=== PATIENT | female | born 1970 | race Caucasian/White ===

== ENCOUNTER 2018-11-10 09:00 | Outpatient (RCR) | payer OTHER, SELFPAY ==
--- NOTE | 2018-10-22 17:14 | PT.OPPOC ---
Current Diagnoses Malignant neoplasm of unspecified site of unspecified female breast (10/19/18) Provider Visit Care Team Role Provider Type Lorena Myers MD Family Provider Physician Primary Care Provider Specialty: Family Practice Address: [address] [place] [address], [id number] Email: Suellen Meza MD Attending Provider Non-Staff Specialty: Medical Address: [address] [place] [address], [place], [address] Email: Plan Of Care PT-OP-T Assessment and Plan Start: 10/19/18 09:02 Freq: Status: Active Protocol: Document 10/19/18 09:02 KATHY (Rec: 10/19/18 17:22 KATHY [id number]) Physical Therapy Assessment Rehab Potential Rehabilitation Potential Excellent Evaluation Complexity Number of Personal Factors/Comorbidities 1-2 Number of Body Systems Impaired 3 Clinical Presentation at Evaluation Evolving Impairments Impairments Edema Integument ROM Goals 4 Impairment edema bilateral breasts Gear Cutting Machine Operator Goal (LTG) Patient to demonstrate no appreciable edema bilateral breasts LTG Duration 2 months 3 Impairment tissue fibrosis bilateral breasts Short Term Goal (STG) decrease soft tissue fibrosis bilateral breasts STG Duration 1 month Gear Cutting Machine Operator Goal (LTG) Eliminate soft tissue fibrosis bilateral breasts LTG Duration 2 months 2 Impairment scar mobility Detention Goal (LTG) Improve scar mobility in abdomen to WNL LTG Duration 2 months 1 Impairment ROM Short Term Goal (STG) Instruct patient in HEP for gentle UE ROM STG Duration 3 wks Gear Cutting Machine Operator Goal (LTG) Patient to demonstrate bilateral UE ROM WNL including ability to reach overhead and behind her back with ease for purposes of ADL's and functional activities LTG Duration 2 months Assessment Summary Assessment Patient presents with decreased shoulder ROM, decreased scar mobility, soft tissue fibrosis and edema bilateral breasts s/p bilateral mastectomies with reconstruction using abdominal -based ANTONY free flaps. She would benefit from PT to improve her shoulder ROM and function, improve her scar mobility, and eliminate her soft tissue fibrosis and edema bilateral breasts. Physical Therapy Plan Frequency and Duration Frequency of Treatment 2x/Week Duration of Treatment 3 months Plan of Care Start Date 10/19/18 Plan of Care End Date 01/17/19 Therapeutic Interventions Therapeutic Interventions Manual Therapy Patient/Caregiver Education Sensory Integration Soft Tissue Mobilization Therapeutic Activities Therapeutic Exercises Other Therapeutic Interventions edema management as indicated Next Visit Focus/Plan Next Note Type Treatment Note Next Visit Plan Review HEP, gentle progression of shoulder ROM. Scar mobilization. Plan of Care Dates Plan of Care Start Date 10/19/18 Plan of Care End Date 01/17/19 Please Sign and Return: I have reviewed this Plan of Care and certify that the skilled therapy services above are required to meet the patient?s needs. Physician Signature Date Printed Name and Credentials Clinical Instructor Signature Printed Name and Credentials
--- NOTE | 2018-10-24 10:54 | PT.OTN ---
Current Diagnoses Malignant neoplasm of unspecified site of unspecified female breast (10/24/18) Physical Therapy Treatment Note PT-OP-A Visit Information Start: 10/19/18 09:02 Freq: Status: Active Protocol: Document 10/24/18 09:01 KATHY (Rec: 10/24/18 10:52 [facility] [id number]) Out-Patient Physical Therapy Visit Information Visit Information Visit Type Treatment Note Visit Start Time 09:05 Visit Stop Time 09:45 Total Visit Minutes 40 Visit Number 2 Number of HEAD SAWYER AUTOMATIC Visits 0 Evaluation Information Evaluation Date 10/19/18 Precautions Precautions Gentle shoulder ab or ext until 6 wks post-op, slow progression on abdominal strengthening. Can work on scar management as well as shoulder ROM. PT-OP-B Current Condition Start: 10/19/18 09:02 Freq: Status: Active Protocol: Document 10/19/18 09:02 KATHY (Rec: 10/19/18 09:12 [facility] [id number]) Current Condition History of Current Condition Onset Date 09/14/18 Current Complaints decreased shoulder ROM, tightness and pain in abdomen, breast swelling History of Current Condition post-op nikki mastectomy ( prophylactic) with bilateral breast reconstruction using abdominal-based ANTONY free flaps. Reports no lymph nodes removed. Still has 1 drain in on right. Is uncertain what she is allowed to do at this point but is afraid of getting frozen shoulders, and reports tightness in abdomen feeling like it is pulling her forward . Was instructed to wear no compression or bra. Prior Treatments and Tests Hysterectomty 1 yr ago. HTN, carpal tunnel surgery Future Testing and Treatments Planned Phase II breast surgery in November. 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 Baseline Function- Recreation/Hobbies No limitations Current Functional Impairments (Reported) Functional Limitations- ADL's limited use of UE's; unable to reach overhead or behind her back for purposes of ADL's and functional activities. Functional Limitations- Work/School going back to work next week Functional Limitations- Recreation/ not currently running Hobbies PT-OP-C Subjective Start: 10/19/18 09:02 Freq: Status: Active Protocol: Document 10/24/18 09:01 KATHY (Rec: 10/24/18 10:54 [facility] [id number]) OP-PT Subjective Patient Comments Patient Comments No increase in pain, has been doing HEP, scar massage. Patient Reported Progress Improving PT-OP-J Posture/Palpation/Skin Start: 10/19/18 09:02 Freq: Status: Active Protocol: Document 10/19/18 09:02 [facility] (Rec: 10/19/18 17:22 [facility] [id number]) Posture Evaluation Position Sitting T-Spine Posture Increased Kyphosis Shoulder Posture (L) Rounded (R) Rounded Arm Posture (L) Internally Rotated (R) Internally Rotated Comments Posture Comments forward head, rounded shoulders, flexed trunk Palpation Assessment Location abdominal surgical scar Palpation Findings Soft Tissue Tightness Palpation Details decreased scar mobility bilateral breasts Palpation Findings Edema Soft Tissue Tightness Palpation Details fibrosis bilateral breasts inferiorly both medial and lateral Skin Assessment Incisional Assessment Incision Appearance/Comments breast incisions and abdominal incision healing well with no signs or symptoms of infection. Other Assessments Skin Assessment Comments moderate decrease in mobility abdominal scar. PT-OP-K Range of Motion Start: 10/19/18 09:02 Freq: Status: Active Protocol: Document 10/19/18 09:02 [facility] (Rec: 10/19/18 17:22 [facility] [id number]) Cervical Spine Range of Motion Cervical Spine Active Comments WNl Shoulder Goniometric Range of Motion Shoulder Measured in Degrees Left Flexion 105 Extension 15 Abduction 20 External Rotation at 45 degrees 70 Abduction Internal Rotation Behind Back (text) T6 Right Testing Position Supine Flexion 105 Extension 15 Abduction 20 External Rotation at 45 degrees 65 Abduction Internal Rotation Behind Back (text) L3 Shoulder ROM Limitations Shoulder ROM Limitations Soft Tissue Tightness Elbow/Forearm Range of Motion Elbow/Forearm Measured in Degrees nikki Elbow/Forearm ROM WFL Yes PT-OP-Q Treatments Start: 10/19/18 09:02 Freq: Status: Active Protocol: Document 10/24/18 09:01 [facility] (Rec: 10/24/18 10:52 [facility] [id number]) Therapeutic Exercises Supine Exercises PROM all planes Side bilateral Reps/Minutes 5 min Comments gentle end-range stretches shoulder ER Supine Exercise Name AAROM Side bilateral Reps/Minutes 10x wand Supine Exercise Name shoulder flex Side bilateral Reps/Minutes 10x Sitting Exercises shoulder flex with therapy ball Reps/Minutes 10x Comments 65 cm ball pulleys Sitting Exercise Name shoulder flex Reps/Minutes 15x Manual Therapy Treatment Soft Tissue Mobilization abdominal scar Mobilization Type Myofascial Release Rolling Intensity/Depth Moderate Body Position Hooklying PT-OP-T Assessment and Plan Start: 10/19/18 09:02 Freq: Status: Active Protocol: Document 10/24/18 09:01 KATHY (Rec: 10/24/18 10:52 KATHY [id number]) Physical Therapy Assessment Goals 4 Impairment edema bilateral breasts [facility] Goal (LTG) Patient to demonstrate no appreciable edema bilateral breasts LTG Duration 2 months 3 Impairment tissue fibrosis bilateral breasts Short Term Goal (STG) decrease soft tissue fibrosis bilateral breasts STG Duration 1 month [facility] Goal (LTG) Eliminate soft tissue fibrosis bilateral breasts LTG Duration 2 months 2 Impairment scar mobility [facility] Goal (LTG) Improve scar mobility in abdomen to WNL LTG Duration 2 months 1 Impairment ROM Short Term Goal (STG) Instruct patient in HEP for gentle UE ROM STG Duration 3 wks Wire Stitcher Operator Goal (LTG) Patient to demonstrate bilateral UE ROM WNL including ability to reach overhead and behind her back with ease for purposes of ADL's and functional activities LTG Duration 2 months Physical Therapy Plan Frequency and Duration Frequency of Treatment 2x/Week Duration of Treatment 3 months Plan of Care Start Date 10/19/18 Plan of Care End Date 01/17/19 Therapeutic Interventions Therapeutic Interventions Manual Therapy Patient/Caregiver Education Sensory Integration Soft Tissue Mobilization Therapeutic Activities Therapeutic Exercises Other Therapeutic Interventions edema management as indicated Next Visit Focus/Plan Next Note Type Treatment Note Next Visit Plan Add active supine Y's, T's and I's for gentle stretch, continue scar management, soft tissue mob.
--- NOTE | 2018-10-27 13:55 | PT.OTN ---
Current Diagnoses Malignant neoplasm of unspecified site of unspecified female breast (10/27/18) Physical Therapy Treatment Note PT-OP-A Visit Information Start: 10/19/18 09:02 Freq: Status: Active Protocol: Document 10/27/18 09:00 SAK (Rec: 10/27/18 13:55 [facility] [id number]) Out-Patient Physical Therapy Visit Information Visit Information Visit Type Treatment Note Visit Start Time 09:00 Visit Stop Time 09:45 Total Visit Minutes 45 Visit Number 3 Number of RENTAL COUNTER CLERK Visits 0 Evaluation Information Evaluation Date 10/19/18 Precautions Precautions Gentle shoulder ab or ext until 6 wks post-op, slow progression on abdominal strengthening. Can work on scar management as well as shoulder ROM. PT-OP-B Current Condition Start: 10/19/18 09:02 Freq: Status: Active Protocol: Document 10/19/18 09:02 SAK (Rec: 10/19/18 09:12 [facility] [id number]) Current Condition History of Current Condition Onset Date 09/14/18 Current Complaints decreased shoulder ROM, tightness and pain in abdomen, breast swelling History of Current Condition post-op nikki mastectomy ( prophylactic) with bilateral breast reconstruction using abdominal-based ANTONY free flaps. Reports no lymph nodes removed. Still has 1 drain in on right. Is uncertain what she is allowed to do at this point but is afraid of getting frozen shoulders, and reports tightness in abdomen feeling like it is pulling her forward . Was instructed to wear no compression or bra. Prior Treatments and Tests Hysterectomty 1 yr ago. HTN, carpal tunnel surgery Future Testing and Treatments Planned Phase II breast surgery in November. 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 Baseline Function- Recreation/Hobbies No limitations Current Functional Impairments (Reported) Functional Limitations- ADL's limited use of UE's; unable to reach overhead or behind her back for purposes of ADL's and functional activities. Functional Limitations- Work/School going back to work next week Functional Limitations- Recreation/ not currently running Hobbies PT-OP-C Subjective Start: 10/19/18 09:02 Freq: Status: Active Protocol: Document 10/27/18 09:00 KATHY (Rec: 10/27/18 13:55 [facility] [id number]) OP-PT Subjective Patient Comments Patient Comments reports abdomen feels very tight today. swelling and orange peel texture of breast bothersome. Sees her surgeon 11/03/18. PT-OP-J Posture/Palpation/Skin Start: 10/19/18 09:02 Freq: Status: Active Protocol: Document 10/19/18 09:02 SAK (Rec: 10/19/18 17:22 [facility] [id number]) Posture Evaluation Position Sitting T-Spine Posture Increased Kyphosis Shoulder Posture (L) Rounded (R) Rounded Arm Posture (L) Internally Rotated (R) Internally Rotated Comments Posture Comments forward head, rounded shoulders, flexed trunk Palpation Assessment Location abdominal surgical scar Palpation Findings Soft Tissue Tightness Palpation Details decreased scar mobility bilateral breasts Palpation Findings Edema Soft Tissue Tightness Palpation Details fibrosis bilateral breasts inferiorly both medial and lateral Skin Assessment Incisional Assessment Incision Appearance/Comments breast incisions and abdominal incision healing well with no signs or symptoms of infection. Other Assessments Skin Assessment Comments moderate decrease in mobility abdominal scar. PT-OP-K Range of Motion Start: 10/19/18 09:02 Freq: Status: Active Protocol: Document 10/19/18 09:02 SAK (Rec: 10/19/18 17:22 [facility] [id number]) Cervical Spine Range of Motion Cervical Spine Active Comments WNl Shoulder Goniometric Range of Motion Shoulder Measured in Degrees Left Flexion 105 Extension 15 Abduction 20 External Rotation at 45 degrees 70 Abduction Internal Rotation Behind Back (text) T6 Right Testing Position Supine Flexion 105 Extension 15 Abduction 20 External Rotation at 45 degrees 65 Abduction Internal Rotation Behind Back (text) L3 Shoulder ROM Limitations Shoulder ROM Limitations Soft Tissue Tightness Elbow/Forearm Range of Motion Elbow/Forearm Measured in Degrees nikki Elbow/Forearm ROM WFL Yes PT-OP-Q Treatments Start: 10/19/18 09:02 Freq: Status: Active Protocol: Document 10/27/18 09:00 SAK (Rec: 10/27/18 13:55 [facility] [id number]) Therapeutic Exercises Supine Exercises Kegel and TA isometrics Reps/Minutes 10x 5 abdominal breathing, lateral chest breathing Reps/Minutes 20x Comments with manual facilitation and verbal cues, butterfly pec stretch Reps/Minutes 10x Comments gentle wand Supine Exercise Name shoulder flex Side bilateral Reps/Minutes 10x Comments legs straight Sitting Exercises shoulder rolls Reps/Minutes 10x shoulder flex with therapy ball Side bilateral Reps/Minutes 10x Comments 65 cm ball, sitting on heels pulleys Sitting Exercise Name shoulder flex and abd Reps/Minutes 10x Comments gentle Manual Therapy Treatment Soft Tissue Mobilization gentle STM Body Location areas of tissue fibrosis nikki breasts Mobilization Type Myofascial Release Other Intensity/Depth gentle Body Position Supine Self-Care/Home Management Treatment Education Other Education gentle massage to areas of tissue fibrosis bilateral breasts. given 2 chip bags to wear inside of tank top with shelf bra which patient reports she was told she could wear; to decrease tissue fibrosis. PT-OP-T Assessment and Plan Start: 10/19/18 09:02 Freq: Status: Active Protocol: Document 10/27/18 09:00 KATHY (Rec: 10/27/18 13:55 [facility] [id number]) Physical Therapy Assessment Goals 4 Impairment edema bilateral breasts Numerical Control Nesting Operator Goal (LTG) Patient to demonstrate no appreciable edema bilateral breasts LTG Duration 2 months 3 Impairment tissue fibrosis bilateral breasts Short Term Goal (STG) decrease soft tissue fibrosis bilateral breasts STG Duration 1 month Shelter Goal (LTG) Eliminate soft tissue fibrosis bilateral breasts LTG Duration 2 months 2 Impairment scar mobility Numerical Control Nesting Operator Goal (LTG) Improve scar mobility in abdomen to WNL LTG Duration 2 months 1 Impairment ROM Short Term Goal (STG) Instruct patient in HEP for gentle UE ROM STG Duration 3 wks Shelter Goal (LTG) Patient to demonstrate bilateral UE ROM WNL including ability to reach overhead and behind her back with ease for purposes of ADL's and functional activities LTG Duration 2 months Assessment Summary Assessment Patient initially had difficulty with abdominal breathing and lateral chest breathing for tissue relaxation and stretch. Has difficulty activating transverse abdominis, but demonstrated good understanding of starting with Kegel. Demonstrates good understanding of need for gentle ROM at this time, don't push into pain. Compliant to HEP. Also demonstrated good understanding of gentle self- massage Physical Therapy Plan Frequency and Duration Frequency of Treatment 2x/Week Duration of Treatment 3 months Plan of Care Start Date 10/19/18 Plan of Care End Date 01/17/19 Next Visit Focus/Plan Next Note Type Treatment Note Next Visit Plan Add active supine Y's, T's and I's for gentle stretch, continue scar management, cont with soft tissue mobilization areas of tissue fibrosis bilateral breasts. Gentle reach and roll as tolerated.
--- NOTE | 2018-11-01 08:40 | PT.OTN ---
Current Diagnoses Malignant neoplasm of unspecified site of unspecified female breast (10/31/18) Physical Therapy Treatment Note PT-OP-A Visit Information Start: 10/19/18 09:02 Freq: Status: Active Protocol: Document 10/31/18 08:56 SAK (Rec: 10/31/18 09:44 [facility] [id number]) Out-Patient Physical Therapy Visit Information Visit Information Visit Type Treatment Note Visit Start Time 09:00 Visit Stop Time 09:45 Total Visit Minutes 45 Visit Number 4 Number of CONCRETE PANEL INSTALLER Visits 0 Evaluation Information Evaluation Date 10/19/18 Precautions Precautions Gentle shoulder ab or ext until 6 wks post-op, slow progression on abdominal strengthening. Can work on scar management as well as shoulder ROM. PT-OP-B Current Condition Start: 10/19/18 09:02 Freq: Status: Active Protocol: Document 10/19/18 09:02 SAK (Rec: 10/19/18 09:12 [facility] [id number]) Current Condition History of Current Condition Onset Date 09/14/18 Current Complaints decreased shoulder ROM, tightness and pain in abdomen, breast swelling History of Current Condition post-op nikki mastectomy ( prophylactic) with bilateral breast reconstruction using abdominal-based ANTONY free flaps. Reports no lymph nodes removed. Still has 1 drain in on right. Is uncertain what she is allowed to do at this point but is afraid of getting frozen shoulders, and reports tightness in abdomen feeling like it is pulling her forward . Was instructed to wear no compression or bra. Prior Treatments and Tests Hysterectomty 1 yr ago. HTN, carpal tunnel surgery Future Testing and Treatments Planned Phase II breast surgery in November. 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 Baseline Function- Recreation/Hobbies No limitations Current Functional Impairments (Reported) Functional Limitations- ADL's limited use of UE's; unable to reach overhead or behind her back for purposes of ADL's and functional activities. Functional Limitations- Work/School going back to work next week Functional Limitations- Recreation/ not currently running Hobbies PT-OP-C Subjective Start: 10/19/18 09:02 Freq: Status: Active Protocol: Document 10/31/18 08:56 KATHY (Rec: 10/31/18 09:44 [facility] [id number]) OP-PT Subjective Patient Comments Patient Comments Sees surgeon 11/03/18 PT-OP-J Posture/Palpation/Skin Start: 10/19/18 09:02 Freq: Status: Active Protocol: Document 10/19/18 09:02 SAK (Rec: 10/19/18 17:22 [facility] [id number]) Posture Evaluation Position Sitting T-Spine Posture Increased Kyphosis Shoulder Posture (L) Rounded (R) Rounded Arm Posture (L) Internally Rotated (R) Internally Rotated Comments Posture Comments forward head, rounded shoulders, flexed trunk Palpation Assessment Location abdominal surgical scar Palpation Findings Soft Tissue Tightness Palpation Details decreased scar mobility bilateral breasts Palpation Findings Edema Soft Tissue Tightness Palpation Details fibrosis bilateral breasts inferiorly both medial and lateral Skin Assessment Incisional Assessment Incision Appearance/Comments breast incisions and abdominal incision healing well with no signs or symptoms of infection. Other Assessments Skin Assessment Comments moderate decrease in mobility abdominal scar. PT-OP-K Range of Motion Start: 10/19/18 09:02 Freq: Status: Active Protocol: Document 10/19/18 09:02 [facility] (Rec: 10/19/18 17:22 [facility] [id number]) Cervical Spine Range of Motion Cervical Spine Active Comments WNl Shoulder Goniometric Range of Motion Shoulder Measured in Degrees Left Flexion 105 Extension 15 Abduction 20 External Rotation at 45 degrees 70 Abduction Internal Rotation Behind Back (text) T6 Right Testing Position Supine Flexion 105 Extension 15 Abduction 20 External Rotation at 45 degrees 65 Abduction Internal Rotation Behind Back (text) L3 Shoulder ROM Limitations Shoulder ROM Limitations Soft Tissue Tightness Elbow/Forearm Range of Motion Elbow/Forearm Measured in Degrees nikki Elbow/Forearm ROM WFL Yes PT-OP-Q Treatments Start: 10/19/18 09:02 Freq: Status: Active Protocol: Document 10/31/18 08:56 [facility] (Rec: 10/31/18 09:44 [facility] [id number]) Therapeutic Exercises Supine Exercises LTR Reps/Minutes 10x capital Y Reps/Minutes 5x abdominal breathing, lateral chest breathing Reps/Minutes 20x Comments with manual facilitation and verbal cues, shoulder ER Reps/Minutes 10x Comments at 90 deg abd wand Supine Exercise Name shoulder flex Side bilateral Reps/Minutes 10x Comments legs straight Sidelying Exercises trunk rotation Reps/Minutes 5x ea side Sitting Exercises shoulder flex with therapy ball Side bilateral Reps/Minutes 10x Comments 65 cm ball, sitting on heels pulleys Sitting Exercise Name shoulder flex and abd Reps/Minutes 10x Comments gentle Manual Therapy Treatment Soft Tissue Mobilization abdominal scar Mobilization Type Myofascial Release Rolling Intensity/Depth Moderate Body Position Hooklying Self-Care/Home Management Treatment Education Other Education scar massage abdomen PT-OP-T Assessment and Plan Start: 10/19/18 09:02 Freq: Status: Active Protocol: Document 10/31/18 08:56 [facility] (Rec: 11/01/18 08:40 [facility] [id number]) Physical Therapy Assessment Goals 4 Impairment edema bilateral breasts [employer] Goal (LTG) Patient to demonstrate no appreciable edema bilateral breasts LTG Duration 2 months 3 Impairment tissue fibrosis bilateral breasts Short Term Goal (STG) decrease soft tissue fibrosis bilateral breasts STG Duration 1 month [employer] Goal (LTG) Eliminate soft tissue fibrosis bilateral breasts LTG Duration 2 months 2 Impairment scar mobility [employer] Goal (LTG) Improve scar mobility in abdomen to WNL LTG Duration 2 months 1 Impairment ROM Short Term Goal (STG) Instruct patient in HEP for gentle UE ROM STG Duration 3 wks [employer] Goal (LTG) Patient to demonstrate bilateral UE ROM WNL including ability to reach overhead and behind her back with ease for purposes of ADL's and functional activities LTG Duration 2 months Assessment Summary Assessment Improved deep breathing ability, low compliance to scar massage due to numbness and uncertainty; demonstrated improved understanding of methods and importance. Physical Therapy Plan Frequency and Duration Frequency of Treatment 2x/Week Duration of Treatment 3 months Plan of Care Start Date 10/19/18 Plan of Care End Date 01/17/19 Therapeutic Interventions Therapeutic Interventions Manual Therapy Patient/Caregiver Education Sensory Integration Soft Tissue Mobilization Therapeutic Activities Therapeutic Exercises Other Therapeutic Interventions edema management as indicated Next Visit Focus/Plan Next Note Type Treatment Note Next Visit Plan increased emphasis next session on soft tissue of breast fibrosis, cont gentle progressio for ROM of shoulders.
--- NOTE | 2018-11-12 12:54 | PT.OTN ---
Current Diagnoses Malignant neoplasm of unspecified site of unspecified female breast (11/10/18) Physical Therapy Treatment Note PT-OP-A Visit Information Start: 10/19/18 09:02 Freq: Status: Active Protocol: Document 11/10/18 09:00 [facility] (Rec: 11/12/18 12:54 [facility] [id number]) Out-Patient Physical Therapy Visit Information Visit Information Visit Type Treatment Note Visit Start Time 09:00 Visit Stop Time 09:45 Total Visit Minutes 45 Visit Number 5 Number of COO Visits 0 Evaluation Information Evaluation Date 10/19/18 Precautions Precautions Gentle shoulder ab or ext until 6 wks post-op, slow progression on abdominal strengthening. Can work on scar management as well as shoulder ROM. PT-OP-B Current Condition Start: 10/19/18 09:02 Freq: Status: Active Protocol: Document 10/19/18 09:02 SAK (Rec: 10/19/18 09:12 [facility] [id number]) Current Condition History of Current Condition Onset Date 09/14/18 Current Complaints decreased shoulder ROM, tightness and pain in abdomen, breast swelling History of Current Condition post-op nikki mastectomy ( prophylactic) with bilateral breast reconstruction using abdominal-based ANTONY free flaps. Reports no lymph nodes removed. Still has 1 drain in on right. Is uncertain what she is allowed to do at this point but is afraid of getting frozen shoulders, and reports tightness in abdomen feeling like it is pulling her forward . Was instructed to wear no compression or bra. Prior Treatments and Tests Hysterectomty 1 yr ago. HTN, carpal tunnel surgery Future Testing and Treatments Planned Phase II breast surgery in November. 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 Baseline Function- Recreation/Hobbies No limitations Current Functional Impairments (Reported) Functional Limitations- ADL's limited use of UE's; unable to reach overhead or behind her back for purposes of ADL's and functional activities. Functional Limitations- Work/School going back to work next week Functional Limitations- Recreation/ not currently running Hobbies PT-OP-C Subjective Start: 10/19/18 09:02 Freq: Status: Active Protocol: Document 11/10/18 09:00 KATHY (Rec: 11/12/18 12:54 [facility] [id number]) OP-PT Subjective Patient Comments Patient Comments Patient reports she will be having phase II surgery on breasts and abdomen. Is 6 wks post-op. PT-OP-J Posture/Palpation/Skin Start: 10/19/18 09:02 Freq: Status: Active Protocol: Document 10/19/18 09:02 SAK (Rec: 10/19/18 17:22 [facility] [id number]) Posture Evaluation Position Sitting T-Spine Posture Increased Kyphosis Shoulder Posture (L) Rounded (R) Rounded Arm Posture (L) Internally Rotated (R) Internally Rotated Comments Posture Comments forward head, rounded shoulders, flexed trunk Palpation Assessment Location abdominal surgical scar Palpation Findings Soft Tissue Tightness Palpation Details decreased scar mobility bilateral breasts Palpation Findings Edema Soft Tissue Tightness Palpation Details fibrosis bilateral breasts inferiorly both medial and lateral Skin Assessment Incisional Assessment Incision Appearance/Comments breast incisions and abdominal incision healing well with no signs or symptoms of infection. Other Assessments Skin Assessment Comments moderate decrease in mobility abdominal scar. PT-OP-K Range of Motion Start: 10/19/18 09:02 Freq: Status: Active Protocol: Document 10/19/18 09:02 [facility] (Rec: 10/19/18 17:22 [facility] [id number]) Cervical Spine Range of Motion Cervical Spine Active Comments WNl Shoulder Goniometric Range of Motion Shoulder Measured in Degrees Left Flexion 105 Extension 15 Abduction 20 External Rotation at 45 degrees 70 Abduction Internal Rotation Behind Back (text) T6 Right Testing Position Supine Flexion 105 Extension 15 Abduction 20 External Rotation at 45 degrees 65 Abduction Internal Rotation Behind Back (text) L3 Shoulder ROM Limitations Shoulder ROM Limitations Soft Tissue Tightness Elbow/Forearm Range of Motion Elbow/Forearm Measured in Degrees nikki Elbow/Forearm ROM WFL Yes PT-OP-Q Treatments Start: 10/19/18 09:02 Freq: Status: Active Protocol: Document 11/10/18 09:00 [facility] (Rec: 11/12/18 12:54 [facility] [id number]) Therapeutic Exercises Supine Exercises pec stretch Side bilateral Comments manual TrA with bent knee lowering Reps/Minutes 5x TrA with supine march Reps/Minutes 10x I's, T' Side bilateral Equipment Used 65 cm therapy ball capital Y Equipment Used 65 cm therapy ball Reps/Minutes 5x Kegel and TA isometrics Reps/Minutes 10x 5 Prone Exercises prone on elbows abdominal stretch Reps/Minutes 2x 30 Sidelying Exercises reach and roll Side bilateral Reps/Minutes 5 x Sitting Exercises lat pull Resistance 15# Reps/Minutes 10x shoulder flex with therapy ball Side bilateral Reps/Minutes 10x Comments on knees pulleys Sitting Exercise Name shoulder flex and abd Reps/Minutes 10x Standing Exercises rows, shld ext, ER Equipment Used L1 TB Reps/Minutes 10x Manual Therapy Treatment Soft Tissue Mobilization gentle STM Body Location areas of tissue fibrosis nikki breasts abdominal scar Mobilization Type Myofascial Release Rolling Intensity/Depth Moderate Body Position Hooklying Self-Care/Home Management Treatment Education Patient Education Body Mechanics Posture PT-OP-T Assessment and Plan Start: 10/19/18 09:02 Freq: Status: Active Protocol: Document 11/10/18 09:00 KATHY (Rec: 11/12/18 12:54 [facility] [id number]) Physical Therapy Assessment Goals 4 Impairment edema bilateral breasts [facility] Goal (LTG) Patient to demonstrate no appreciable edema bilateral breasts LTG Duration 2 months 3 Impairment tissue fibrosis bilateral breasts Short Term Goal (STG) decrease soft tissue fibrosis bilateral breasts STG Duration 1 month Assistant Softball Coach Goal (LTG) Eliminate soft tissue fibrosis bilateral breasts LTG Duration 2 months 2 Impairment scar mobility [facility] Goal (LTG) Improve scar mobility in abdomen to WNL LTG Duration 2 months 1 Impairment ROM Short Term Goal (STG) Instruct patient in HEP for gentle UE ROM STG Duration 3 wks [facility] Goal (LTG) Patient to demonstrate bilateral UE ROM WNL including ability to reach overhead and behind her back with ease for purposes of ADL's and functional activities LTG Duration 2 months Progress Towards Goals Progress Towards Goals Progressing Toward Goals Assessment Summary Assessment Improving shoulder ROM and tolerance for ther ex though exhibiting some signs and symptoms of left shoulder impingement; was educated today on cause for pain with importance of RC ex as instructed. Some improvement in abdominal scar texture though still significant soft tissue tightness; will benefit from further manual therapy and ther ex. Will need to hold PT per surgeon recommendations after next PT session due to upcoming surgery. Physical Therapy Plan Frequency and Duration Frequency of Treatment 2x/Week Duration of Treatment 3 months Plan of Care Start Date 10/19/18 Plan of Care End Date 01/17/19 Therapeutic Interventions Therapeutic Interventions Manual Therapy Patient/Caregiver Education Sensory Integration Soft Tissue Mobilization Therapeutic Activities Therapeutic Exercises Other Therapeutic Interventions edema management as indicated Next Visit Focus/Plan Next Note Type Treatment Note Next Visit Plan Review HEP, RC strengthening, postural correction, manual techniques.
--- NOTE | 2019-01-25 08:34 | PT.OPDS ---
Current Diagnoses Malignant neoplasm of unspecified site of unspecified female breast (11/10/18) Provider Visit Care Team Role Provider Type Lorena Myers MD Family Provider Physician Primary Care Provider Specialty: Family Practice Address: [facility] [place], [address] Email: Suellen Meza MD Attending Provider Non-Staff Specialty: Medical Address: [address] [place] [address], [place], [address] Email: Visit Number Visit Number 5 Discharge Summary PT-OP-B Current Condition Start: 10/19/18 09:02 Freq: Status: Active Protocol: Document 10/19/18 09:02 KATHY (Rec: 10/19/18 09:12 [facility] [id number]) Current Condition History of Current Condition Onset Date 09/14/18 Current Complaints decreased shoulder ROM, tightness and pain in abdomen, breast swelling History of Current Condition post-op nikki mastectomy ( prophylactic) with bilateral breast reconstruction using abdominal-based ANTONY free flaps. Reports no lymph nodes removed. Still has 1 drain in on right. Is uncertain what she is allowed to do at this point but is afraid of getting frozen shoulders, and reports tightness in abdomen feeling like it is pulling her forward . Was instructed to wear no compression or bra. Prior Treatments and Tests Hysterectomty 1 yr ago. HTN, carpal tunnel surgery Future Testing and Treatments Planned Phase II breast surgery in November. 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 Baseline Function- Recreation/Hobbies No limitations Current Functional Impairments (Reported) Functional Limitations- ADL's limited use of UE's; unable to reach overhead or behind her back for purposes of ADL's and functional activities. Functional Limitations- Work/School going back to work next week Functional Limitations- Recreation/ not currently running Hobbies PT-OP-C Subjective Start: 10/19/18 09:02 Freq: Status: Active Protocol: Document 11/10/18 09:00 KATHY (Rec: 11/12/18 12:54 [facility] [id number]) OP-PT Subjective Patient Comments Patient Comments Patient reports she will be having phase II surgery on breasts and abdomen. Is 6 wks post-op. PT-OP-J Posture/Palpation/Skin Start: 10/19/18 09:02 Freq: Status: Active Protocol: Document 10/19/18 09:02 [facility] (Rec: 10/19/18 17:22 [facility] [id number]) Posture Evaluation Position Sitting T-Spine Posture Increased Kyphosis Shoulder Posture (L) Rounded (R) Rounded Arm Posture (L) Internally Rotated (R) Internally Rotated Comments Posture Comments forward head, rounded shoulders, flexed trunk Palpation Assessment Location abdominal surgical scar Palpation Findings Soft Tissue Tightness Palpation Details decreased scar mobility bilateral breasts Palpation Findings Edema Soft Tissue Tightness Palpation Details fibrosis bilateral breasts inferiorly both medial and lateral Skin Assessment Incisional Assessment Incision Appearance/Comments breast incisions and abdominal incision healing well with no signs or symptoms of infection. Other Assessments Skin Assessment Comments moderate decrease in mobility abdominal scar. PT-OP-K Range of Motion Start: 10/19/18 09:02 Freq: Status: Active Protocol: Document 10/19/18 09:02 [facility] (Rec: 10/19/18 17:22 [facility] [id number]) Cervical Spine Range of Motion Cervical Spine Active Comments WNl Shoulder Goniometric Range of Motion Shoulder Left Flexion 105 Extension 15 Abduction 20 External Rotation at 45 degrees 70 Abduction Internal Rotation Behind Back (text) T6 Right Testing Position Supine Flexion 105 Extension 15 Abduction 20 External Rotation at 45 degrees 65 Abduction Internal Rotation Behind Back (text) L3 Shoulder ROM Limitations Shoulder ROM Limitations Soft Tissue Tightness Elbow/Forearm Range of Motion Elbow/Forearm nikki Elbow/Forearm ROM WFL Yes PT-OP-T Assessment and Plan Start: 10/19/18 09:02 Freq: Status: Active Protocol: Document 11/10/18 09:00 [facility] (Rec: 11/12/18 12:54 [facility] [id number]) Physical Therapy Assessment Goals 4 Impairment edema bilateral breasts [employer] Goal (LTG) Patient to demonstrate no appreciable edema bilateral breasts LTG Duration 2 months 3 Impairment tissue fibrosis bilateral breasts Short Term Goal (STG) decrease soft tissue fibrosis bilateral breasts STG Duration 1 month [employer] Goal (LTG) Eliminate soft tissue fibrosis bilateral breasts LTG Duration 2 months 2 Impairment scar mobility [employer] Goal (LTG) Improve scar mobility in abdomen to WNL LTG Duration 2 months 1 Impairment ROM Short Term Goal (STG) Instruct patient in HEP for gentle UE ROM STG Duration 3 wks Detention Goal (LTG) Patient to demonstrate bilateral UE ROM WNL including ability to reach overhead and behind her back with ease for purposes of ADL's and functional activities LTG Duration 2 months Progress Towards Goals Progress Towards Goals Progressing Toward Goals Assessment Summary Assessment Improving shoulder ROM and tolerance for ther ex though exhibiting some signs and symptoms of left shoulder impingement; was educated today on cause for pain with importance of RC ex as instructed. Some improvement in abdominal scar texture though still significant soft tissue tightness; will benefit from further manual therapy and ther ex. Will need to hold PT per surgeon recommendations after next PT session due to upcoming surgery. Physical Therapy Plan Frequency and Duration Frequency of Treatment 2x/Week Duration of Treatment 3 months Plan of Care Start Date 10/19/18 Plan of Care End Date 01/17/19 Therapeutic Interventions Therapeutic Interventions Manual Therapy Patient/Caregiver Education Sensory Integration Soft Tissue Mobilization Therapeutic Activities Therapeutic Exercises Other Therapeutic Interventions edema management as indicated Next Visit Focus/Plan Next Note Type Treatment Note Next Visit Plan Review HEP, RC strengthening, postural correction, manual techniques.
== END 2019-05-16 15:06 | disposition home or self-care (01) ==
LOC: PHYS 09:00
PROVIDERS: Family Provider Family Medicine; PCP Family Medicine; Visit Provider Surgery Surgical Oncology
DX: C50.919 Malignant neoplasm of unspecified site of unspecified female breast (principal)
CPT/HCPCS: 97110; 97112; 97140; 97162

== ENCOUNTER → 2022-07-16 15:34 | Outpatient (CLI) | payer OTHER, SELFPAY ==
--- NOTE | 2022-07-16 15:36 | DI.RAD.S_ITS ---
PROCEDURE: XR TOE LT MIN 2V INDICATIONS: Pain in Left great toe TECHNIQUE: 3 views of the 1st toe(s) acquired. COMPARISON: None. FINDINGS: Bones: No fractures or dislocations. No suspicious bony lesions. Soft tissues: No suspicious soft tissue densities. IMPRESSION: Unremarkable left 1st toe radiographs Approved by: Ky Layne M.D. on 07/16/2022 at 17:01
== END ==
PROVIDERS: Family Provider Family Medicine; PCP Family Medicine; Referring Provider Family Medicine; Visit Provider Family Medicine
DX: M79.675 Pain in left toe(s) (principal)
CPT/HCPCS: 73660

== ENCOUNTER → 2024-07-03 11:35 | Outpatient (CLI) | payer BC, SELFPAY ==
--- NOTE | 2024-07-03 12:59 | DIAB.MNT ---
Initial Diabetes Medical Nutrition Therapy Assessment Name: Ada Godoy Date: 07/03/24 Time: 115-2p Dx: Type II Diabetes Provider: Lucia Ryan Learning Style: visual and hands on Lakisha presents for initial virtual visit using [facility]. States she tested positive for covid. Reports a FH of cancers. Had a hysterectomy. Feels her health has since changed. Always had a higher cholesterol. Feels her BG have inched up over the years. Feels she eats pretty healthy. Reports mother with T2 diagnosed in older age. Endorses PMH of Dm in the last year. States she was diagnosed with lab draw of glucose over 200mg/dl. Also reports PMH of thalassemia trait, which impacts RBC and therefore potentially HgA1c results. States she has completed iron panel with PCP with good results. Saw PCP yesterday. No concern currently on elevated TG. Goal to manage lifestyle changes before consideration of any other medications, ie GLP1. Her sister uses a GLP1 to manage wt and maybe BG, has lost a lot of wt, but seems frail in her opinion. Open to SMBG or CGM. She would like to know more about her BG trends. has only been taking Metformin 1000mg HS, not in the morning due to upset GI, ie diarrhea. Even with food, she may have GI upset. Plans to try 500mg in the morning. States her Metformin is XR. May want to consider taking XR only HS before bed at full dose? Diet Recall: 630a wake 830a: coffee nutpod unsweetened, [place] Citizen yogurt with fruit or PB with cruzito and pumpkin seeds +/- eggs OR toast with pb on thin ww bread 1030a: protein bar, coffee OR string cheese, OR fruit 12p: soup OR salad OR tuna salad OR stir emerson 2-4p: fruit or cheese 630-7p: chickpea salad OR chicken/ground turkey and veggies sn: acai dark chocolate sparkling water 12oz x 3 25-48oz at night of water ETOH: social glass of wine x 1 Eating out down fall per report. Takes half meal home. Not much rice, noodles, pasta, or potatoes. May have some crackers. If having rice will be 1/2 c or less. Doesn't like to drink water, because does not like to go to the bathroom during work day. Craves carbs, ie tortilla chips (with salsa), or potato chip. Use to drink a smoothie per day: almond milk, ice, pro powder, cruzito, spinach, [place] Citizen yogurt, sometimes frozen raspberries or blueberries. Anthropometrics: Ht: 5'6 Wt: 169# 02/2024 Physical Activity: Walks dogs 1x per day 20 min. Likes to walk for exercise. Has a treadmill. Self-Monitoring Blood Glucose: none Diabetes Medications: 1000mg Metformin BID (only taking 1000mg HS) Pertinent Labs: HgA1c: 6.0% 07/2023 5.9% 05/2024 Lipids: 05/2024 Cholesterol: 164 HDL: 52 T LDL: 61 Past Medical History: Per referral hypercholesterolemia, CAD, Dyspnea on exertion, GERD, T2DM, microcytosis, impaired fasting Nutrition Rx: Carbohydrates: Meal:30-45g Snack:15-30g Nutrition Diagnosis: - Food and nutrition knowledge deficit r/t no previous MNT aeb pt report - Self monitoring deficit r/t no previous SMBG or CGM aeb pt report Intervention: This participant was very receptive. Provided appropriate educational handouts. Discussed the following topics: Completed intake assessment. Discussed barriers to care. HgA1c, its correlation to blood glucose numbers, impacting factors of accuracy, Potential for self-monitoring, how often, and when to check. SMBG vs CGM. Recommended portions for carbs and protein Role of physical activity Hydration recommendations Strategies to reduce GI upset Created SMART goals for patient self-care and success. Goals: Try 500mg in the morning to see if GI upset improves Download [employer] apps and set up acct Spread out water intake earlier in the day Aim for 45 minutes of exercise per day Follow-up: VICKY GLASGOW follow-up in 2-3 weeks. Chantale Pleitez RDN, [facility] Certified Diabetes Care and Guest Relation Officer P: [phone] Thank you for this referral
== END ==
PROVIDERS: Family Provider Family Medicine; PCP Family Medicine; Referring Provider Family Medicine
DX: E11.9 Type 2 diabetes mellitus without complications (principal); Z79.84 Long term (current) use of oral hypoglycemic drugs; Z71.3 Dietary counseling and surveillance
CPT/HCPCS: 97802

== ENCOUNTER → 2024-07-17 14:56 | Outpatient (CLI) | payer BC, SELFPAY ==
--- NOTE | 2024-07-17 15:05 | DIAB.MNTFU ---
Addendum entered by Chantale Pleitez 08/01/24 16:09: Decided not to postpone CGM sample this visit. Original Note: Follow-up Diabetes Medical Nutrition Therapy Assessment Name: Ada Godoy Date: 07/17/24 Time: 305-4p Dx: Type II Diabetes Lakisha presents for follow-up visit. States she will be going out of town and would like to postpone CGM sample placement today. We will set up valeria and she can place sample once she returns. Chooses ww bread. Has questions about how much carb to eat per day. How much carbs in specific foods. Still drinking majority of water in the evening. Trying to take Metformin XR full dose, but does have GI upset if she does not take it with a full meal. This results in some inconsistency with taking med. Has questions about triglycerides and elevations in cholesterol. Last Visit Diet Recall: 630a wake 830a: coffee nutpod unsweetened, [place] yogurt with fruit or PB with cruzito and pumpkin seeds +/- eggs OR toast with pb on thin ww bread 1030a: protein bar, coffee OR string cheese, OR fruit 12p: soup OR salad OR tuna salad OR stir emerson 2-4p: fruit or cheese 630-7p: chickpea salad OR chicken/ground turkey and veggies sn: acai dark chocolate sparkling water 12oz x 3 25-48oz at night of water ETOH: social glass of wine x 1 Eating out down fall per report. Takes half meal home. Anthropometrics: Ht: 5'6 Wt: 169# 02/2024 Physical Activity: Walking 45 minutes per day after meal with her dog. Self-Monitoring Blood Glucose: none, but has meter at home. Interested in CGM. Diabetes Medications: 1000mg Metformin BID (only taking 1000mg HS) Pertinent Labs: HgA1c: 6.0% 07/2023 5.9% 05/2024 Lipids: 05/2024 Cholesterol: 164 HDL: 52 T LDL: 61 Past Medical History: Per referral hypercholesterolemia, CAD, Dyspnea on exertion, GERD, T2DM, microcytosis, impaired fasting Nutrition Rx: Carbohydrates: Meal:30-45g Snack:15-30g Nutrition Diagnosis: - Food and nutrition knowledge deficit r/t no previous MNT aeb pt report - Self monitoring deficit r/t no previous SMBG or CGM aeb pt report Intervention: This participant was very receptive. Provided appropriate educational handouts. Discussed the following topics: Reviewed CGM use and equipment Discussed when to check blood sugars using finger stick Reviewed high and low blood sugar signs/symptoms and treatment options Provided education for self-administration of CGM placement Educated patient on alarm settings Discussed how to remove and dispose of equipment Plate Method, impact of macronutrients on blood sugar, meal timing, carbohydrate counting, pairing macronutrients and spreading out carbohydrates for better blood glucose management Recommended servings for carbohydrates at meals and snacks Heart health nutrition Impact of diet on lipid panel Created SMART goals for patient self-care and success. Goals: Try 500mg in the morning to see if GI upset improves - d/c Download Dexcom apps and set up acct- met Spread out water intake earlier in the day- in progress Aim for 45 minutes of exercise per day - met Wear CGM- new Aim for carb recs per meal- new Follow-up: VICKY GLASGOW follow-up in 2-3 weeks Chantale Pleitez RDN, PEE Certified Diabetes Care and Pathological Technician P: [phone] Thank you for this referral
== END ==
PROVIDERS: Family Provider Family Medicine; PCP Family Medicine; Referring Provider Family Medicine
DX: E11.9 Type 2 diabetes mellitus without complications (principal); Z71.3 Dietary counseling and surveillance; Z79.84 Long term (current) use of oral hypoglycemic drugs
CPT/HCPCS: 97803

== ENCOUNTER → 2024-08-01 16:18 | Outpatient (CLI) | payer BC, SELFPAY ==
--- NOTE | 2024-08-16 08:56 | DIAB.MNTFU ---
Follow-up Diabetes Medical Nutrition Therapy Assessment Name: dAa Godoy Date: 08/01/24 Time: 415-5p Dx: Type II Diabetes Lakisha presents for follow-up visit. Wore CGM and would like more info on OTC options. Documented meals in valeria. Reviewed and most meals seem balanced. Also reduced CHO portions as discussed last visit. Does endorse most of her water consumption at night, will go most of the day with minimal water. States she does not want DM, was mostly under the impression that she had prediabetes. Also interested in body composition scan, which is offered at . Anthropometrics: Ht: 5'6 Wt: 169# 02/2024 Physical Activity: Walking increased to 30 min BID. Self-Monitoring Blood Glucose: In goal TIR with over 70% in range. TIR: 0% very high 3% high 97% in range 0% low 0% very low av mg/dl GMI: 6.2% variation: 19.5% Diabetes Medications: 1000mg Metformin BID (only taking 1000mg HS) Pertinent Labs: HgA1c: 6.0% 07/2023 5.9% 05/2024 Lipids: 05/2024 Cholesterol: 164 HDL: 52 T LDL: 61 Past Medical History: Per referral hypercholesterolemia, CAD, Dyspnea on exertion, GERD, T2DM, microcytosis, impaired fasting Nutrition Rx: Carbohydrates: Meal:30-45g Snack:15-30g Nutrition Diagnosis: - Food and nutrition knowledge deficit r/t no previous MNT aeb pt report- improved - Self monitoring deficit r/t no previous SMBG or CGM aeb pt report - improved Intervention: This participant was very receptive. Provided appropriate educational handouts. Discussed the following topics: Reviewed CGM OTC option Reviewed BG results from CGM and rec goals Discussed body composition resources Hydration recs and spreading out through the day Physical activity benefits and rec: cardio and resistance training Diabetes v Prediabetes Created SMART goals for patient self-care and success. Goals: Spread out water intake earlier in the day- in progress/continue Wear CGM- met Aim for carb recs per meal- met Discuss FSL3 rx with PCP, RD provided coupon info- new Call body composition resource prn- new Try adding resistance training- new Follow-up: VICKY CDCES follow-up prn. BG management is going well. We discussed nutrition changes and BG results. Encouraged her to call or message with questions or follow-up needs. She agreed. Chantale Pleitez RDN, [facility] Certified Diabetes Care and Flake Or Shred Roll Operator P: [phone] Thank you for this referral
== END ==
PROVIDERS: Family Provider Family Medicine; PCP Family Medicine; Referring Provider Family Medicine
DX: E11.9 Type 2 diabetes mellitus without complications (principal); Z79.84 Long term (current) use of oral hypoglycemic drugs; Z71.3 Dietary counseling and surveillance
CPT/HCPCS: 97803